=== PATIENT | female | born 1990 | race Caucasian/White ===

== ENCOUNTER 2020-05-14 11:32 | Inpatient (IN) ==
[2020-05-14 12:54] LABS: Urine Appearance Cloudy; Urine Bilirubin Negative (Negative); Urine Blood 2+ (Negative); Urine Color Amber; Urine Glucose Negative (Negative); Urine Ketones Negative (Negative); Urine Nitrite Positive (Negative); Urine Protein Negative (Negative); Urine Specific Gravity 1.012 (1.010-1.030); Urine Urobilinogen Positive (Negative)
[2020-05-14 13:06] LABS: Urine Bacteria 1+ (Absent); Urine Red Blood Cell 3+(>10/hpf) (Absent); Urine Squamous Epithelial Cell Present (Absent); Urine White Blood Cell 3+(>20/hpf) (Absent)
[2020-05-14 13:16] LABS: Urine Benzodiazepine Screen None Detected (None Detect); Urine Cannabinoids Screen None Detected (None Detect); Urine Opiates Screen None Detected (None Detect)
[2020-05-14 13:46] LABS: ABS Lymphocytes 1.2 10^3/ul (1.0-4.8); ABS Monocytes 0.5 10^3/ul (0-0.8); ABS Neutrophils 4.9 10^3/ul (1.5-7.7); Eosinophil % 0.1 %; Hematocrit 24 % (35-47); Hemoglobin 7.9 g/dL (12.0-16.0); Lymphocyte % 17.5 %; Mean Corpuscular HGB Conc 33 g/dL (31-36); Mean Corpuscular Hemoglobin 27 pg (27-31); Mean Corpuscular Volume 82 fL (80-97); Nucleated Red Blood Cells % 0.2; Platelet Count 91 10^3/uL (150-450); Red Cell Distribution Width 21 % (10-15); White Blood Count 6.7 10^3/uL (3.5-10.8)
[2020-05-14 14:07] LABS: HCG Pregnancy < 0.60 mIU/mL
[2020-05-14 15:48] LABS: Albumin 2.7 g/dL (3.2-5.2); Anion Gap 10 mmol/L (2-11); CO2 Carbon Dioxide 24 mmol/L (22-32); Calcium 7.9 mg/dL (8.6-10.3); Chloride 100 mmol/L (101-111); Magnesium 1.1 mg/dL (1.9-2.7); Potassium 3.7 mmol/L (3.5-5.0); Sodium 134 mmol/L (135-145)
[2020-05-14 15:49] LABS: Alcohol, S 333 mg/dL (<10)
[2020-05-14 15:54] LABS: ALT 37 U/L (7-52); AST 105 U/L (13-39); Albumin/Globulin Ratio 0.7 (1-3); Alkaline Phosphatase 161 U/L (34-104); BUN/Creatinine Ratio 15.1 (8-20); Blood Urea Nitrogen 8 mg/dL (6-24); C Reactive Protein 14.06 mg/L (<8.01); EGFR African American 163.9 (>60); EGFR Non-African American 135.4 (>60); Glucose 119 mg/dL (70-100); Total Protein 6.7 g/dL (6.4-8.9)
[2020-05-14] MEDS ORDERED: Magnesium Sulfate 2 gm BAG 2 GM/50 ML BAG IVPB ONE (15:58)
[2020-05-14 16:23] LABS: Troponin I 0.01 ng/mL (<0.03)
[2020-05-14] MEDS ORDERED: NS 0.9% 1000 ml BAG 1,000 ML IV.FLUID IV ONE (16:33)
[2020-05-14] MEDS ORDERED: Magnesium Sulf 4 GM/100 ML IV 4,000 MG/100 ML BAG IVPB ONE ×2 (16:39→21:00)
[2020-05-14] MEDS ORDERED: Piperacillin/Tazobac ADVAN 3.375 GM in NS 0.9% 100 ml BAG 100 ML IV ONE (17:41)
[2020-05-14 17:58] LABS: INR 1.6 (0.82-1.09)
[2020-05-14] MEDS ORDERED: LORazepam 2 mg VIAL 1 ml IV PUSH ONE (18:25)
[2020-05-14] MEDS ORDERED: Lorazepam PYXIS KEY PRN (18:25)
[2020-05-14] MEDS ORDERED: Lorazepam PYXIS KEY ONE (18:29)
[2020-05-14 19:01] LABS: Lipase 71 U/L (11.0-82.0)
[2020-05-14] MEDS ORDERED: Thiamine 100 MG/ML 2 ml VIAL 100 MG, Folic Acid 1 MG, Multiple Vitamin IV ADULT 10 ML i... IV ONE (19:26)
[2020-05-14] MEDS ORDERED: LORazepam 2 mg VIAL 1 ml IV PUSH SCH (20:00)
[2020-05-14] MEDS ORDERED: Zosyn per Pharmacy NOTE FOLLOW UP SCH (20:00)
[2020-05-14 20:17] LABS: Hepatitis B Surface Antigen Nonreactive (Nonreactive)
[2020-05-14 20:23] LABS: Hepatitis A Ab IgM Negative (Negative); Hepatitis B Core IgM Nonreactive (Nonreactive)
[2020-05-14 20:44] LABS: Hepatitis C Antibody Reactive (Negative)
[2020-05-14 21:40] LABS: Hematocrit 21 % (35-47); Hemoglobin 6.8 g/dL (12.0-16.0); Mean Corpuscular HGB Conc 33 g/dL (31-36); Mean Corpuscular Hemoglobin 27 pg (27-31); Mean Corpuscular Volume 82 fL (80-97); Mean Platelet Volume 8.3 fL (7.4-10.4); Platelet Count 73 10^3/uL (150-450); Red Blood Count 2.55 10^6 /uL (3.70-4.87); Red Cell Distribution Width 21 % (10-15); White Blood Count 4.7 10^3/uL (3.5-10.8)
[2020-05-14] MEDS ORDERED: Iohexol 300 (CONTRAST) 10 ML SDV IV ONE (22:37)
[2020-05-14] MEDS ORDERED: Pantoprazole VIAL 40 MG VIAL IV ONE (22:49)
[2020-05-14] MEDS ORDERED: ZOSYN 3.375 GM Q8H per EXTENDED INFUSION IV SCH (23:00)
[2020-05-14 23:04] LABS: Acanthocytes 1+; Burr Cells 1+; Tear Drop Cells 2+
[2020-05-14 23:06] LABS: ABS Lymphocytes 0.9 10^3/ul (1.0-4.8); ABS Monocytes 0.6 10^3/ul (0-0.8); ABS Neutrophils 3.2 10^3/ul (1.5-7.7); Eosinophil % 0.1 %; Lymphocyte % 18.4 %; Nucleated Red Blood Cells % 0.1
[2020-05-14] MEDS ORDERED: Octreotide Acetate 100 mcg/ml 50 MCG in NS 0.9% 50 ML 50 ML IV ONE (23:30)
[2020-05-15] MEDS: Cefepime 2 GM in Dextrose 2 GM/50 ML BAG IV SCH ×3 (00:13→15:03)
[2020-05-15] MEDS: Ondansetron 4 mg VIAL 2 MG/ML 2 ml VIAL IV PRN ×2 (02:39→10:52)
[2020-05-15] MEDS: Multivitamins/Minerals TAB PO SCH (10:25)
[2020-05-15] MEDS: Pantoprazole VIAL 40 MG VIAL IV SCH ×2 (10:25→19:59)
[2020-05-15] MEDS: Octreotide Acetate 500 MCG in NS 0.9% 100 ml BAG 100 ML IV SCH ×3 (10:37→22:28)
[2020-05-15 10:49] LABS: ABS Lymphocytes 0.9 10^3/ul (1.0-4.8); ABS Monocytes 0.4 10^3/ul (0-0.8); ABS Neutrophils 3.8 10^3/ul (1.5-7.7); Eosinophil % 0.3 %; Hematocrit 26 % (35-47); Hemoglobin 8.5 g/dL (12.0-16.0); Lymphocyte % 17.7 %; Mean Corpuscular HGB Conc 33 g/dL (31-36); Mean Corpuscular Hemoglobin 27 pg (27-31); Mean Corpuscular Volume 82 fL (80-97); Mean Platelet Volume 9.3 fL (7.4-10.4); Nucleated Red Blood Cells % 0.1; Platelet Count 78 10^3/uL (150-450); Red Blood Count 3.12 10^6 /uL (3.70-4.87); Red Cell Distribution Width 20 % (10-15); White Blood Count 5.3 10^3/uL (3.5-10.8)
[2020-05-15] MEDS: NS 0.9% 1000 ml BAG 1,000 ML IV SCH (11:49)
[2020-05-15] MEDS ORDERED: Iohexol 350 (CONTRAST) 500 ML MDV IV ONE (13:01)
[2020-05-15 19:50] LABS: Hematocrit 24 % (35-47); Hemoglobin 7.9 g/dL (12.0-16.0)
[2020-05-16 00:18] LABS: Hematocrit 24 % (35-47); Mean Corpuscular HGB Conc 33 g/dL (31-36); Mean Corpuscular Hemoglobin 27 pg (27-31); Mean Corpuscular Volume 83 fL (80-97); Mean Platelet Volume 8.5 fL (7.4-10.4); Platelet Count 71 10^3/uL (150-450); Red Blood Count 2.95 10^6 /uL (3.70-4.87); Red Cell Distribution Width 20 % (10-15); White Blood Count 5.8 10^3/uL (3.5-10.8)
[2020-05-16 00:31] LABS: Albumin 2.2 g/dL (3.2-5.2); Albumin/Globulin Ratio 0.6 (1-3); BUN/Creatinine Ratio 10.6 (8-20); Calcium 7.3 mg/dL (8.6-10.3); EGFR African American 127.2 (>60); EGFR Non-African American 105.2 (>60); Globulin 3.8 g/dL (2-4); Potassium 3.4 mmol/L (3.5-5.0); Total Bilirubin 4.1 mg/dL (0.2-1.0)
[2020-05-16 00:42] LABS: ABS Eosinophils 0.1 10^3/ul (0-0.6); ABS Lymphocytes 1.2 10^3/ul (1.0-4.8); ABS Monocytes 0.4 10^3/ul (0-0.8); ABS Neutrophils 4.1 10^3/ul (1.5-7.7); Eosinophil % 1.2 %; Lymphocyte % 21.2 %; Nucleated Red Blood Cells % 0.1
[2020-05-16] MEDS: Octreotide Acetate 500 MCG in NS 0.9% 100 ml BAG 100 ML IV SCH ×3 (02:26→16:54)
[2020-05-16] MEDS: Cefepime 2 GM in Dextrose 2 GM/50 ML BAG IV SCH ×2 (03:19→15:51)
[2020-05-16 03:29] LABS: Hematocrit 24 % (35-47)
[2020-05-16] MEDS: Potassium Chlor 20 meq TAB.ER PO SCH ×2 (10:05→21:01)
[2020-05-16] MEDS: Multivitamins/Minerals TAB PO SCH (10:05)
[2020-05-16] MEDS: Pantoprazole VIAL 40 MG VIAL IV SCH ×2 (10:06→21:01)
[2020-05-16] MEDS ORDERED: Nicotine GUM 4MG FRUIT FLAVOR PO PRN (11:17)
[2020-05-16] MEDS: Ondansetron 4 mg VIAL 2 MG/ML 2 ml VIAL IV PRN (11:42)
[2020-05-16 18:56] LABS: Hematocrit 26 % (35-47); Hemoglobin 8.5 g/dL (12.0-16.0)
[2020-05-17 02:09] LABS: Hematocrit 27 % (35-47); Hemoglobin 8.8 g/dL (12.0-16.0)
[2020-05-17] MEDS: Cefepime 2 GM in Dextrose 2 GM/50 ML BAG IV SCH ×2 (03:38→15:31)
[2020-05-17] MEDS: Octreotide Acetate 500 MCG in NS 0.9% 100 ml BAG 100 ML IV SCH ×3 (04:36→11:21)
[2020-05-17] MEDS: NS 0.9% 1000 ml BAG 1,000 ML IV SCH (08:26)
[2020-05-17] MEDS: Pantoprazole VIAL 40 MG VIAL IV SCH ×2 (08:26→20:04)
[2020-05-17] MEDS: Potassium Chlor 20 meq TAB.ER PO SCH ×2 (08:38→20:04)
[2020-05-17] MEDS: Multivitamins/Minerals TAB PO SCH (08:38)
[2020-05-17 10:06] LABS: Hematocrit 26 % (35-47); Hemoglobin 8.6 g/dL (12.0-16.0)
[2020-05-17 10:23] LABS: Albumin 2.5 g/dL (3.2-5.2); Albumin/Globulin Ratio 0.6 (1-3); BUN/Creatinine Ratio 8.1 (8-20); Calcium 8.1 mg/dL (8.6-10.3); EGFR African American 136.8 (>60); Globulin 4.4 g/dL (2-4); Potassium 3.8 mmol/L (3.5-5.0); Total Protein 6.9 g/dL (6.4-8.9)
[2020-05-17] MEDS ORDERED: fentaNYL 100 mcg/2 ml 50 MCG/ML VIAL ONE (13:45)
[2020-05-17] MEDS ORDERED: diPHENhydraMINE IV 50 MG/ML 1 ml VIAL (BENADRYL) ONE (13:46)
[2020-05-17] MEDS ORDERED: Midazolam 10 mg/10 ml VIAL 1 mg/ml 10 ml VIAL (10 mg) ONE (13:46)
[2020-05-18] MEDS: Cefepime 2 GM in Dextrose 2 GM/50 ML BAG IV SCH (02:58)
[2020-05-18 07:06] LABS: Hematocrit 28 % (35-47); Mean Corpuscular HGB Conc 33 g/dL (31-36); Mean Corpuscular Hemoglobin 28 pg (27-31); Mean Corpuscular Volume 86 fL (80-97); Mean Platelet Volume 8.6 fL (7.4-10.4); Platelet Count 80 10^3/uL (150-450); Red Blood Count 3.23 10^6 /uL (3.70-4.87); Red Cell Distribution Width 20 % (10-15); White Blood Count 5.1 10^3/uL (3.5-10.8)
[2020-05-18 07:31] LABS: BUN/Creatinine Ratio 12.3 (8-20); Calcium 8.4 mg/dL (8.6-10.3); EGFR African American 150.7 (>60); EGFR Non-African American 124.5 (>60); Potassium 4.3 mmol/L (3.5-5.0)
[2020-05-18 07:42] LABS: ABS Eosinophils 0.1 10^3/ul (0-0.6); ABS Lymphocytes 1.2 10^3/ul (1.0-4.8); ABS Monocytes 0.2 10^3/ul (0-0.8); ABS Neutrophils 3.5 10^3/ul (1.5-7.7); Eosinophil % 1.7 %; Lymphocyte % 23.5 %; Nucleated Red Blood Cells % 0.1
[2020-05-18] MEDS: Potassium Chlor 20 meq TAB.ER PO SCH (08:52)
[2020-05-18] MEDS: Multivitamins/Minerals TAB PO SCH (08:52)
[2020-05-18] MEDS: Pantoprazole VIAL 40 MG VIAL IV SCH (08:53)
[2020-05-18 16:36] VITALS: BP 117/71
== END 2020-05-18 11:05 | disposition left against medical advice (07) | DRG 720 ==
LOC: ED 11:32 → MED 19:27
PROVIDERS: ADMIT Internal Medicine; ATTEND Hospitalist